=== PATIENT | male | born 1950 | race Caucasian/White ===

== ENCOUNTER 2025-04-13 16:38 | Inpatient (IN) | payer MEDICARE, OTHER ==
[~2025-04-13] VITALS: Ht 172.7 cm; Wt 103.9 kg
[~2025-04-13 16:38] MED LIST: APIX5TAB MT; ATOR20TA65 PO; CARV25TA47 PO; EMPA25TA PO; FURO40TA5 PO; GABA-1180 MT; GLIP5TAB22 PO; SACU1TAB7 MT
[2025-04-13 17:34] LABS: BASOPHILS % 1.2 % (0.0-2.0); EOSINOPHILS % 1.3 % (0.0-5.0); HEMATOCRIT. 48.1 % (42.0-52.0); HEMOGLOBIN. 16.1 g/dL (14.0-18.0); LYMPHOCYTES % 10.8 % (20.0-50.0); MEAN CORPUSCULAR HEMOGLOBIN 32.2 pg (28.0-32.0); MEAN CORPUSCULAR HGB CONC 33.5 g/dL (31.0-37.0); MEAN PLATELET VOLUME 8.9 fl (7.4-10.4); MONOCYTES % 6.9 % (2.0-8.0); NEUTROPHILS % 79.8 % (40.0-76.0); PLATELET 149 x1000/uL (130-400); RED BLOOD CELL COUNT 5.01 mill/uL (4.7-6.1); RED CELL DISTRIBUTION WIDTH 15.5 % (11.6-14.6); WHITE BLOOD COUNT 8.4 x1000/uL (4.5-11.0)
[2025-04-13 17:42] LABS: POTASSIUM 4.3 mEq/L (3.5-5.1)
[2025-04-13 17:43] LABS: CALCIUM 9.8 mg/dL (8.7-10.4)
[2025-04-13 17:48] LABS: CREATININE 1.8 mg/dL (0.6-1.3)
[2025-04-13] MEDS: FUROSEMIDE 40MG/4ML VIAL IVP ONE (18:44)
[2025-04-13 19:28] LABS: TROPONIN I HIGH SENSITIVITY 36 ng/L (3.0-53)
[2025-04-13 19:29] LABS: ALANINE AMINOTRANSFERASE < 7 IU/L (10-49); ALBUMIN 4.7 g/dL (3.2-4.8); ASPARTATE AMINOTRANSFERASE 15 IU/L (<34); BILIRUBIN DIRECT 0.5 mg/dL (<=3.0); BILIRUBIN TOTAL 1.2 mg/dL (0.1-1.0); PROTEIN TOTAL 7.4 g/dL (6.0-8.3)
[2025-04-13] MEDS ORDERED: DOCUSATE SODIUM 100MG CAPSULE PO PRN (21:30)
[2025-04-13] MEDS ORDERED: ONDANSETRON HCL 4MG/2ML INJ IV PRN (21:30)
[2025-04-13] MEDS ORDERED: GUAIFENESIN 200MG/10ML SUGAR FREE UDC PO PRN (21:30)
[2025-04-13] MEDS ORDERED: CLONIDINE 0.1MG TABLET PO PRN (21:30)
[2025-04-13] MEDS ORDERED: ACETAMINOPHEN 325MG TABLET PO PRN ×2 (21:30)
[2025-04-13] MEDS ORDERED: MAGNESIUM/ALUMINUM HYDROXIDE/SIMETHICONE 30ML UDC PO PRN (21:30)
[2025-04-13] MEDS ORDERED: IPRATROPIUM/ALBUTEROL 0.5-3(2.5)MG/3ML NEB HHN PRN (21:45)
[2025-04-13 22:18] LABS: ETHANOL BLOOD < 10 mg/dL (<10)
[2025-04-13 22:19] LABS: D-DIMER 0.49 mg/L FEU (<0.50); FOLIC ACID (FOLATE) SERUM 13.09 ng/mL (>5.38); INR 1.1; PROTHROMBIN TIME 11.6 sec (9.6-11.0); T4 FREE 1.44 ng/dL (0.89-1.76); THYROID STIMULATING HORMONE 1.85 uIU/mL (0.55-4.78)
[2025-04-13 22:20] LABS: VITAMIN B12 SERUM 307 pg/mL (211-911)
[2025-04-14] VITALS: BP 113/74; RESP 19; TEMP 36.55848; O2SAT 95
[2025-04-14 00:52] LABS: CREATINE KINASE MB FRACTION 5.4 ng/mL (0.5-3.6)
[2025-04-14] MEDS: APIXABAN 5 MG TABLET PO SCH (01:12)
[2025-04-14 04:00] VITALS: BP 109/67; PULSE 98; RESP 18; TEMP 36.4; O2SAT 96
[2025-04-14 04:14] VITALS: BP 134/77; PULSE 90; RESP 20; TEMP 36.7
[2025-04-14] MEDS ORDERED: GABAPENTIN 300MG CAPSULE PO PRN (04:30)
[2025-04-14] MEDS: FUROSEMIDE 40MG/4ML VIAL IVP SCH (06:14)
[2025-04-14] MEDS ORDERED: SACU1TAB MT (06:52)
[2025-04-14] MEDS ORDERED: SODI10PO PO (06:53)
[2025-04-14] MEDS ORDERED: FUROSEMIDE 40MG/4ML VIAL IVP SCH (09:00)
[2025-04-14] MEDS: EMPAGLIFLOZIN 25MG TABLET PO SCH (09:28)
[2025-04-14] MEDS: ATORVASTATIN CALCIUM 20MG TABLET PO SCH (09:29)
[2025-04-14 09:50] LABS: HEMATOCRIT 48.8 % (42.0-52.0); HEMOGLOBIN 16.1 g/dL (14.0-18.0); MEAN CORPUSCULAR HEMOGLOBIN 31.8 pg (28.0-32.0); MEAN CORPUSCULAR VOLUME 96.4 fL (80.0-94.0); PLATELET 146 x1000/uL (130-400); RED BLOOD CELL COUNT 5.07 mill/uL (4.7-6.1); RED CELL DISTRIBUTION WIDTH 15.6 % (11.6-14.6)
[2025-04-14 09:51] LABS: CALCIUM 9.7 mg/dL (8.7-10.4); CARBON DIOXIDE 25 mEq/L (21-32); CHLORIDE 105 mEq/L (98-107); POTASSIUM 4.2 mEq/L (3.5-5.1); SODIUM 142 mEq/L (136-145)
[2025-04-14 09:55] LABS: CREATININE 1.8 mg/dL (0.6-1.3); GLUCOSE 116 mg/dL (70-105)
[2025-04-14 09:56] LABS: LDL CHOLESTEROL 76 mg/dL (5-100)
[2025-04-14 09:57] LABS: CHOLESTEROL 127 mg/dL (<200); HDL CHOLESTEROL 35 mg/dL (>55); TRIGLYCERIDE 131 mg/dL (0-150); UREA NITROGEN BLOOD 27 mg/dL (9-23)
[2025-04-14 09:58] LABS: PHOSPHORUS 3.3 mg/dL (2.5-4.9)
[2025-04-14 12:00] VITALS: BP 100/66; PULSE 88; RESP 22; TEMP 36.3; O2SAT 100
[2025-04-14 16:00] VITALS: BP 129/49; PULSE 94; RESP 20; TEMP 36.9; O2SAT 97
[2025-04-14 20:00] VITALS: BP 100/70; PULSE 79; RESP 14; TEMP 36.1; O2SAT 96
[2025-04-14] MEDS: FAMOTIDINE 20MG TABLET PO SCH (20:53)
[2025-04-15] VITALS: BP 112/79; PULSE 82; RESP 17; TEMP 35.8; O2SAT 99
[2025-04-15 04:00] VITALS: BP 121/84; PULSE 94; RESP 16; TEMP 35.7; O2SAT 94
[2025-04-15 08:00] VITALS: BP 135/81; PULSE 103; RESP 20; TEMP 36.6; O2SAT 95
[2025-04-15 11:33] VITALS: BP 122/74; PULSE 77; TEMP 97.8; O2SAT 96
[2025-04-15 12:00] VITALS: BP 131/74; PULSE 103; RESP 20; TEMP 36.6; O2SAT 97
== END 2025-04-15 15:25 | disposition home or self-care (01) | DRG 291 ==
LOC: ER 16:38 → EDBEDREQ 18:57 → 7WST 20:14 → EDBEDREQTM 20:51 → EDBEDREQ 20:51 → ENRESERV 21:27
PROVIDERS: ADMIT Internal Medicine; ATTEND Internal Medicine
DX: I13.0 Hypertensive heart and chronic kidney disease with heart failure and stage 1 through stage 4 chronic kidney disease, or unspecified chronic kidney disease (principal); I50.23 Acute on chronic systolic (congestive) heart failure; I48.21 Permanent atrial fibrillation; N17.9 Acute kidney failure, unspecified; G47.33 Obstructive sleep apnea (adult) (pediatric); E11.22 Type 2 diabetes mellitus with diabetic chronic kidney disease; E66.01 Morbid (severe) obesity due to excess calories; I34.0 Nonrheumatic mitral (valve) insufficiency; I42.0 Dilated cardiomyopathy; N18.31 Chronic kidney disease, stage 3a; Z79.899 Other long term (current) drug therapy; Z79.84 Long term (current) use of oral hypoglycemic drugs; Z87.891 Personal history of nicotine dependence; Z95.810 Presence of automatic (implantable) cardiac defibrillator; Z79.01 Long term (current) use of anticoagulants; Z68.34 Body mass index [BMI] 34.0-34.9, adult
CPT/HCPCS: 36415; 71045; 80048; 80061; 80076; 80320; 82550; 82553; 82607; 82746; 83036; 83605; 83735; 83880; 84100; 84145; 84439; 84443; 84484; 85025; 85027; 85379; 93005; 93306; 93970; 99291; A4606; J1940; G0480